=== PATIENT | male | born 2000 | race Caucasian/White ===

== ENCOUNTER 2020-12-10 21:03 | Emergency (ER) | payer OTHER | END 2020-12-11 00:35 | disposition home or self-care (01) | LOC: ER1 21:03 | DX: S09.90XA Unspecified injury of head, initial encounter (principal); F17.210 Nicotine dependence, cigarettes, uncomplicated; V49.40XA Driver injured in collision with unspecified motor vehicles in traffic accident, initial encounter; Y92.410 Unspecified street and highway as the place of occurrence of the external cause | CPT/HCPCS: 70450; 99284 ==